=== PATIENT | female | born 1935 | race Caucasian/White ===

== ENCOUNTER → 2018-08-31 09:15 | Outpatient (BNVA) | payer MEDICARE, MEDICAID, SELFPAY | PROVIDERS: Visit Provider Psychiatry & Neurology Neurology | DX: F44.4 Conversion disorder with motor symptom or deficit (principal); R53.82 Chronic fatigue, unspecified; E11.42 Type 2 diabetes mellitus with diabetic polyneuropathy; R35.1 Nocturia; I10 Essential (primary) hypertension | CPT/HCPCS: 99214 ==

== ENCOUNTER → 2018-12-07 09:31 | Outpatient (BNVA) | payer MEDICARE, MEDICAID, SELFPAY | PROVIDERS: PCP Family Medicine; Visit Provider Psychiatry & Neurology Neurology | DX: F44.4 Conversion disorder with motor symptom or deficit (principal); E53.8 Deficiency of other specified B group vitamins; E11.42 Type 2 diabetes mellitus with diabetic polyneuropathy; R53.1 Weakness; I10 Essential (primary) hypertension | CPT/HCPCS: 99214 ==